=== PATIENT | female | born 1970 | race Caucasian/White ===

== ENCOUNTER 2018-07-24 06:41 | Day surgery (SDC) | payer BC, SELFPAY ==
[2018-07-24 06:54] VITALS: BP 118/63; PULSE 59; RESP 16; TEMP 37.2; O2SAT 99
[2018-07-24] MEDS: Lactated Ringers 1,000 ML 80 ML IV (07:27)
--- NOTE | 2018-07-24 08:57 | W.PM.DSUDISC ---
Discharge Plan Disposition Patient Disposition: HOME Condition: Good Discharge Details Reason For Visit: PERSONAL H/O COLON POLYPS Attending Provider: Alfonso Zimmer Primary Care Provider: Edinson Kaufman Home Meds and New Rx's Prescriptions: Continue lorazepam [Ativan] 0.5 MG tablet 0.5 mg PO PRN RF: 0 tretinoin 15 GM gel 15 gm Topical HS RF: 0 hydroxychloroquine 200 MG tablet 300 mg PO DAILY RF: 0 multivitamin [Daily Multiple] 1 EACH tablet 1 ea PO DAILY RF: 0 ibuprofen 800 MG tablet 800 mg PO DAILY RF: 0 estradiol-levonorgestrel [Climara Pro] 1 EACH patch weekly 1 ea Transdermal weekly Qty: 4 RF: 1 Discharge Instructions Instructions: Colonoscopy (DC) Activity:: Activity as Tolerated Diet:: As Tolerated Discharge Orders Discharge Orders: Discharge Order (Routine); Ordered 07/24/18 Ordered By: Alfonso Zimmer
--- NOTE | 2018-07-24 09:03 | W.PM.HP.N ---
Date of service: 07/24/18 Time of Service: 09:03 Assessment and Plan (1) Personal history of colonic polyps: Current visit: Yes Status: Acute I reviewed the colonoscopy procedure with Ms. Sanders, and discussed the risks of the procedure with her. All her questions were answered to her satisfaction. History of Present Illness Chief Complaint: Personal history of colon polyps Narrative: 48 y/o female referred for colorectal cancer screening by colonoscopy. She has been asymptomatic since her last colonoscopy. which was incomplete. She had multiple polyps found at that procedure. She has no family history of colorectal cancer Review of Systems Review of Systems All systems reviewed & are unremarkable except as noted in HPI and below PFSH Family History Other Diabetes Heart disease Hyperlipidemia Mental disorder Medical History Ankylosing spondylitis Carpal tunnel syndrome Dysplastic nevus of skin Hyperplastic colonic polyp Low back pain Nodules vocal cords Social History Smoking/Tobacco Use Status: Former Tobacco Use alcohol intake: current substance use type: does not use Surgical History Colonoscopy - IV Sedation Meds Home Medications Medication Instructions Recorded Confirmed Type lorazepam [Ativan] 0.5 mg PO PRN 04/24/16 07/24/18 History tretinoin 15 gm TOPICAL HS script 04/24/16 07/24/18 History hydroxychloroquine 300 mg PO DAILY tab-cap 06/17/17 07/24/18 History ibuprofen 800 mg PO DAILY 06/15/18 07/22/18 History multivitamin [Daily Multiple 1 ea PO DAILY 06/15/18 07/24/18 History Vitamin] Allergies Allergy/AdvReac Type Severity Reaction Status Date / Time No Known Drug Allergies Allergy Unverified 06/15/18 10:17 Exam Const General: cooperative, healthy appearing, comfortable and no acute distress Nutritional Appearance: average body habitus and well nourished Orientation: alert, awake and oriented x3 HENMT Head: normal to inspection, normocephalic and atraumatic Ears: hearing grossly normal bilaterally Face and sinus: normal facial exam Mouth: oral mucosae normal Eyes General: appearance normal, both eyes and all related structures Sclera: sclerae normal Pupils: PERRL EOM: EOM intact bilaterally Neck Neck: normal visual inspection, trachea midline and supple Resp Effort & Inspection: normal respiratory effort, no audible wheezes, no cough and not labored Cardio Rate: regular rate Rhythm: regular rhythm GI Inspection: normal to inspection Palpation: soft, no guarding and nontender Neuro General: moves all extremities, no focal motor deficits and CN's II-XI intact bilaterally Extrem General: no clubbing, cyanosis or edema Psych Appearance: grossly normal and well kempt Mental Status: mental status grossly normal Judgment: judgment good
--- NOTE | 2018-07-24 09:11 | COLE_ITS ---
Date of service: 07/24/18 Time of Service: 09:11 Colonoscopy Report Date of procedure: 07/24/18 Pre-op diagnosis general: Personal history of colon polyps Post-op diagnosis procedure note: other (Normal colon to the cecum) Procedure: Colonoscopy to the cecum Surgeon: Alfonso Zimmer Anesthesia proc note operative: MAC (Kayla Pugh, ECTOR ASA 2 Mallampati-II) Estimated blood loss (mL): 0 Pathology: none sent Complications: None Disposition: same day Indications: 48-year-old female presenting for colorectal cancer screening with personal history of colon polyps. On her last colonoscopy a tubular adenoma was identified. She has been asymptomatic since her last colonoscopy. She has no family history of colorectal cancer. He was recommended she undergo colonoscopy, and the procedure was reviewed with her. The risks of this procedure were discussed with her; all her questions were answered to her satisfaction. Consent was obtained to proceed with colonoscopy. Prep: Miralax/Dulcolax (Prep quality excellent) Findings: In examining the colon from cecum to anus, no abnormalities were noted. Procedure Description: The patient was seen in the day surgery waiting area. Her identification was confirmed, and procedure check. She was then brought to the procedure room. Monitoring for telemetry, blood pressure, oxygen saturation, and end tidal CO2 monitoring were applied. An appropriate time out was performed to confirm, identification, allergies, medication, procedure, was performed. Sedation was titrated for affect by the [employer]ING [employer]NAGER; Once adequate sedation was achieved, I performed a inspection of the external perineum, and a digitial rectal examination. No significant external abnormalities were noted. On digital rectal examination, there was no blood, no masses, good rectal tone. I advanced the colonoscope from the anus to the cecum under direct visualization. The cecum was identified by the ileal-cecal valve, and the appendiceal orifice. The scope was then withdrawn in circumferential manner from the cecum to the rectum. No abnormalites were noted in the colon. The scope was then withdrawn into the rectum, and retroflexed. No abnormalities were noted of the rectum or anorectal junction. The scope was then withdrawn, terminating the procedure. There were no complications during the procedure, and the patient tolerated the procedure well. She was returned to the day surgery recovery area in good condition. Plan: Will continue with routine screening for colorectal cancer according to current consensus guidelines, which is currently 10 years.
[2018-07-24 10:09] VITALS: BP 118/69; PULSE 60; RESP 16; TEMP 36.3; O2SAT 99
== END 2018-07-24 10:20 | disposition home or self-care (01) ==
PROVIDERS: PCP Internal Medicine; Visit Provider Surgery
PROC: 0DJD8ZZ Inspection of Lower Intestinal Tract, Via Natural or Artificial Opening Endoscopic (ICD-10-PCS; CPT 45378; principal; 2018-07-24 08:10)
DX: Z12.11 Encounter for screening for malignant neoplasm of colon (principal); Z86.010 Personal history of colon polyps
CPT/HCPCS: 45378; NC

== ENCOUNTER 2018-08-24 00:09 | Outpatient (CLI) | payer BC, SELFPAY ==
--- NOTE | 2018-08-24 09:07 | DI.MAMMO_ITS ---
SYMPTOMS/DIAGNOSIS: SCREENING, Z12.31 BILATERAL SCREENING MAMMOGRAM: Mammograms were interpreted according to the usual protocol including computer analysis with CAD system, tomosynthesis and C view imaging. Comparison is made with exams from 2013 through 2017. The breasts are composed of heterogeneously dense fibroglandular tissue, breast density category C. Scattered benign calcifications are again noted in the superior left breast. In the left breast, on the CC view, there are two areas of circumscribed nodularity not definitely seen previously. They are not definitely identified on the lateral view. Spot compression views and ultrasound are requested for further evaluation. In the central right breast, there is an additional area of circumscribed nodularity seen on the CC view. Spot compression views and ultrasound are requested for further evaluation. IMPRESSION: Bilateral category 0. Spot compression views and bilateral breast ultrasound are recommended for further evaluation of new areas of nodularity bilaterally. MQSA ASSESSMENT OF FINDINGS: Incomplete: Needs additional imaging evaluation. Category 0. Patient will receive a letter notifying them of these results. Bi-RADS category C. The breasts are heterogeneously dense, which may obscure small masses.
== END 2018-08-24 00:29 ==
PROVIDERS: PCP Internal Medicine; Visit Provider Obstetrics & Gynecology Gynecology
DX: Z12.31 Encounter for screening mammogram for malignant neoplasm of breast (principal); R92.8 Other abnormal and inconclusive findings on diagnostic imaging of breast
CPT/HCPCS: 77063; 77067

== ENCOUNTER 2018-08-31 00:44 | Outpatient (CLI) | payer BC, SELFPAY ==
--- NOTE | 2018-08-31 13:21 | DI.COMBO_ITS ---
SYMPTOM/DIAGNOSIS: F/U ABNL MAMMO, BILAT NODULARITY BILATERAL ADDITIONAL CALL BACK VIEWS AND BILATERAL BREAST ULTRASOUND: Additional images are interpreted according to the usual protocol including tomosynthesis and 2D imaging. ADDITIONAL VIEWS OF THE LEFT BREAST AND LEFT BREAST ULTRASOUND: Breast density, category C. Additional views of the left breast again vaguely show partially obscured nodules in the left breast. A left breast ultrasound was performed. The upper inner and upper outer quadrants were evaluated sonographically. There are multiple cysts present scattered throughout the left breast. The largest is seen in the upper inner quadrant and measures 1.6 cm. No suspicious cystic or solid masses are seen sonographically. IMPRESSION: No evidence for malignancy. Multiple left breast cysts. Yearly mammography is recommended. Category 2. ADDITIONAL VIEWS OF THE RIGHT BREAST AND RIGHT BREAST ULTRASOUND: Additional views of the right breast again shows a partially obscured nodule in the upper central right breast. Breast density, category C. A right breast ultrasound was performed. The upper inner and upper outer quadrants of the right breast were evaluated sonographically. There are multiple cysts in the right breast. The largest is in the upper outer quadrant and measures 1 by 0.9 cm. No suspicious solid or cystic masses are seen. IMPRESSION: No evidence for malignancy. Yearly mammography is recommended. Multiple breast cysts. Category 2. The findings were discussed with the patient on the date of the examination. SA ASSESSMENT OF FINDINGS: Negative with benign findings. Category 2. Patient will receive a letter notifying them of these results. Bi-RADS category C. The breasts are heterogeneously dense, which may obscure small masses.
== END 2018-08-31 01:04 ==
PROVIDERS: PCP Internal Medicine; Visit Provider Obstetrics & Gynecology Gynecology
DX: Z12.31 Encounter for screening mammogram for malignant neoplasm of breast (principal); R92.8 Other abnormal and inconclusive findings on diagnostic imaging of breast; N60.12 Diffuse cystic mastopathy of left breast; N60.11 Diffuse cystic mastopathy of right breast
CPT/HCPCS: 76642; 77063; 77067

== ENCOUNTER 2019-09-20 13:55 | Outpatient (CLI) | payer BC, SELFPAY ==
[2019-09-20 14:59] LABS: ALT 29 U/L (14-59); AST 19 U/L (15-37); Alkaline Phosphatase 74 U/L (46-116); Anion Gap 8.7 mmol/L (3-11); BUN 9 mg/dL (7-18); Bilirubin, Total 0.3 mg/dL (0.2-1.0); CO2 28.3 mmol/L (21.0-32.0); CREATININE 0.77 mg/dL (0.55-1.02); Chloride 106 mmol/L (98-107); Glucose 86 mg/dL (70-100); Lipase 164 U/L (73-393); Potassium 3.7 mmol/L (3.5-5.1); Sodium 143 mmol/L (136-145); Total Protein 6.9 g/dL (6.4-8.2)
== END 2019-09-20 14:15 ==
PROVIDERS: PCP Internal Medicine; Visit Provider Obstetrics & Gynecology Gynecology
DX: R10.12 Left upper quadrant pain (principal)
CPT/HCPCS: 36415; 80053; 83690

== ENCOUNTER 2019-09-23 13:50 | Outpatient (REF) | payer BC, SELFPAY ==
[2019-09-28 14:41] LABS: Helicobacter pylori Ag, Feces Negative (Negative)
== END 2019-09-23 14:10 ==
LOC: NCHCN 13:50
PROVIDERS: PCP Internal Medicine; Visit Provider Nurse Practitioner Family
DX: R10.13 Epigastric pain (principal)
CPT/HCPCS: 87338

== ENCOUNTER 2019-09-27 10:35 | Outpatient (REF) | payer BC, SELFPAY ==
[2019-09-27 19:56] LABS: Calculated LDL 115 mg/dL; Cholesterol 206 mg/dL (<200); HDL Cholesterol 68 mg/dL (40-60); Triglyceride 116 mg/dL (<150)
== END 2019-09-27 10:55 ==
LOC: NCHCN 10:35
PROVIDERS: PCP Internal Medicine; Visit Provider Nurse Practitioner Family
DX: Z13.220 Encounter for screening for lipoid disorders (principal)
CPT/HCPCS: 80061

== ENCOUNTER 2019-10-25 00:55 | Outpatient (CLI) | payer BC, SELFPAY ==
--- NOTE | 2019-10-25 11:58 | DI.MAMMO_ITS ---
EXAM: MG MAMMO SCREENING CLINICAL HISTORY: screening Z12.39. TECHNIQUE: Bilateral full field digital CC and MLO mammographic images were obtained with 3D tomosyn thesis and utilizing computer aided detection (CAD). COMPARISON: Available for comparison. FINDINGS: Masses/Architectural Distortion: None seen. Microcalcifications: No suspicious pleomorphic-type are seen. Skin Thickening/Nipple Retraction: None. IMPRESSION: 1. No significant interval change with no specific features of malignancy noted. 2. Unless there is more urgent need, screening mammography is recommended, as per [place] [employer] guidelines. ACR BI-RAD Category- 1 Negative Breast Density - Category C - Heterogeneously dense The mammogram demonstrates the patient's breast tissue is dense. Dense breast tissue is very common a nd is not abnormal but dense breast tissue can make it harder to find cancer on a mammogram. Also, de nse breast tissue may increase their breast cancer risk. This information about the result of the [facility] mogram report was provided to the patient to raise their awareness. Use this report when you speak wi th the patient about their risks for breast cancer, which includes their family history. At that time , you may recommend for more screening tests (Ultrasound or MRI) as they might be useful based on the ir risk. A negative radiographic report should not delay biopsy if a dominant or clinically suspicious mass is present. Up to ten percent of cancers are not identified on mammography. A negative report may reinforce clinical impression. Adenosis and dense breasts may obscure an underlying neoplasm. False positive reports average 6 to 10%. Patient will receive a letter notifying them of these results.
== END 2019-10-25 01:15 ==
PROVIDERS: PCP Internal Medicine; Visit Provider Obstetrics & Gynecology Gynecology
DX: Z12.31 Encounter for screening mammogram for malignant neoplasm of breast (principal)
CPT/HCPCS: 77063; 77067

== ENCOUNTER 2020-12-25 16:05 | Outpatient (REF) | payer OTHER, SELFPAY ==
[2020-12-26 09:36] LABS: Hepatitis C Ab w Rflx HCV PCR Negative (Negative)
[2020-12-26 10:02] LABS: Hepatitis B Surface Ag Negative (Negative)
[2020-12-26 11:08] LABS: HIV-1/2 Ag & Ab Screen Negative (Negative)
== END 2020-12-25 16:06 | disposition home or self-care (01) ==
LOC: NCHCN 16:05
PROVIDERS: PCP Internal Medicine; Visit Provider Physician Assistant
DX: Z11.59 Encounter for screening for other viral diseases (principal); Z11.4 Encounter for screening for human immunodeficiency virus [HIV]; W26.8XXD Contact with other sharp object(s), not elsewhere classified, subsequent encounter
CPT/HCPCS: 86803; 87340; 87389

== ENCOUNTER 2021-02-02 11:14 | Outpatient (REF) | payer OTHER, SELFPAY ==
[2021-02-05 10:30] LABS: Hepatitis C Ab w Rflx HCV PCR Negative (Negative)
[2021-02-05 10:35] LABS: HIV-1/2 Ag & Ab Screen Negative (Negative)
[2021-02-05 11:03] LABS: Hepatitis B Surface Ag Negative (Negative)
== END 2021-02-02 11:15 | disposition home or self-care (01) ==
LOC: NCHCN 11:14
PROVIDERS: PCP Internal Medicine; Visit Provider Physician Assistant
DX: W26.8XXD Contact with other sharp object(s), not elsewhere classified, subsequent encounter (principal); Z11.4 Encounter for screening for human immunodeficiency virus [HIV]; Z11.59 Encounter for screening for other viral diseases; S61.031D Puncture wound without foreign body of right thumb without damage to nail, subsequent encounter
CPT/HCPCS: 86803; 87340; 87389

== ENCOUNTER 2021-02-22 11:21 | Outpatient (REF) | payer BC, SELFPAY ==
[2021-02-22 15:31] LABS: Calculated LDL 87 mg/dL (<100); Cholesterol 173 mg/dL (<200); Glucose 107 mg/dL (74-106); HDL Cholesterol 67 mg/dL (40-60); Triglyceride 98 mg/dL (<150)
== END 2021-02-22 11:22 | disposition home or self-care (01) ==
LOC: NCHCN 11:21
PROVIDERS: PCP Internal Medicine; Visit Provider Nurse Practitioner Family
DX: Z00.00 Encounter for general adult medical examination without abnormal findings (principal); Z13.1 Encounter for screening for diabetes mellitus; Z13.220 Encounter for screening for lipoid disorders
CPT/HCPCS: 80061; 82947

== ENCOUNTER 2021-05-11 18:20 | Outpatient (REF) | payer OTHER, SELFPAY ==
[2021-05-14 10:04] LABS: Hepatitis C Ab w Rflx HCV PCR Negative (Negative)
[2021-05-14 12:09] LABS: Hepatitis B Surface Ag Negative (Negative)
[2021-05-14 13:57] LABS: HIV-1/2 Ag & Ab Screen Negative (Negative)
== END 2021-05-11 18:21 | disposition home or self-care (01) ==
LOC: NCHCN 18:20
PROVIDERS: PCP Internal Medicine; Visit Provider Internal Medicine
DX: T14.90XD Injury, unspecified, subsequent encounter (principal); W26.8XXD Contact with other sharp object(s), not elsewhere classified, subsequent encounter
CPT/HCPCS: 86803; 87340; 87389

== ENCOUNTER 2022-07-02 12:36 | Outpatient (REF) | payer BC, SELFPAY ==
--- NOTE | 2022-07-02 11:20 | PAPFT_PTH ---
PATIENT: Diana Sanders LOC: [facility] U#:[id number] AGE/SX: 52/F ROOM: RE07/02/[address]: Zoey Alva NP : 1970 BED: DIS: 07/02/2022 SPEC #: [id number] RECD: 07/02/22 13:04 STATUS: CASSIEJohn AHN #: [id number] DEVI: 07/02/22 11:[address]: Zoey Alva NP DEPT: [facility] Cytology RECD BY: María Elena Ivey ENTERED: 07/02/22 13:05 SP TYPE: PAPFT OTHR DR: Edinson Kaufman Tissues: 1 - CX/ENDOCX FOR PAP SMEARS Procedures: PAP THIN PREP/UVM Screening HPV DNA PROBE Comments: [id number]
== END 2022-07-02 12:37 | disposition home or self-care (01) ==
LOC: LBN 12:36
PROVIDERS: PCP Internal Medicine; Visit Provider Nurse Practitioner Women's Health
DX: Z12.4 Encounter for screening for malignant neoplasm of cervix (principal); Z11.51 Encounter for screening for human papillomavirus (HPV)
CPT/HCPCS: 88142; 87624

== ENCOUNTER → 2022-07-30 01:58 | Outpatient (CLI) | payer BC, SELFPAY ==
--- NOTE | 2022-07-30 11:32 | DI.MAMMO_ITS ---
Exam(s) MAMMO SCREENING EXAM: MAMMO SCREENING CLINICAL HISTORY: screening TECHNIQUE: Bilateral full field digital CC and MLO mammographic images were obtained with 3D tomosyn thesis and utilizing computer aided detection (CAD). COMPARISON: Available for comparison. FINDINGS: Masses/Architectural Distortion: None seen. Microcalcifications: No suspicious pleomorphic-type are seen. Skin Thickening/Nipple Retraction: None. IMPRESSION: 1. No significant interval change with no specific features of malignancy noted. 2. Unless there is more urgent need, screening mammography is recommended, as per [place] [employer] guidelines. BI-RADS Category 1 - Negative Breast Density - Category C - Heterogeneously dense Breast density category C or D implies that the patient has dense breast tissue. Dense breast tissue is very common and is not abnormal but dense breast tissue can make it harder to find cancer on a ma mmogram. Also, dense breast tissue may increase their breast cancer risk. This information about the result of the mammogram report was provided to the patient to raise their awareness. Use this report when you speak with the patient about their risks for breast cancer, which includes their family hist ory. At that time, you may recommend for more screening tests (Ultrasound or MRI) as they might be us eful based on their risk. A negative radiographic report should not delay biopsy if a dominant or clinically suspicious mass is present. Up to ten percent of cancers are not identified on mammography. A negative report may reinforce clinical impression. Adenosis and dense breasts may obscure an underlying neoplasm. False positive reports average 6 to 10%. Patient will receive a letter notifying them of these results.
== END ==
PROVIDERS: PCP Internal Medicine; Visit Provider Nurse Practitioner Women's Health
DX: Z12.31 Encounter for screening mammogram for malignant neoplasm of breast (principal); R92.8 Other abnormal and inconclusive findings on diagnostic imaging of breast
CPT/HCPCS: 77063; 77067

== ENCOUNTER → 2024-02-19 04:18 | Outpatient (CLI) | payer BC, SELFPAY ==
--- NOTE | 2024-02-19 12:12 | DI.MAMMO_ITS ---
Exam(s) MAMMO SCREENING EXAM: MAMMO SCREENING CLINICAL HISTORY: screening TECHNIQUE: Bilateral full field digital CC and MLO mammographic images were obtained with 3D tomosyn thesis and utilizing computer aided detection (CAD). COMPARISON: Available for comparison. FINDINGS: Masses/Architectural Distortion: There is a new 5 mm nodule in the posterior central left breast seen on the craniocaudad view. There is a stable nodule seen in the medial right breast. No areas of ar chitectural distortion are seen. Microcalcifications: No suspicious pleomorphic-type are seen. Skin Thickening/Nipple Retraction: None. IMPRESSION: 1. New 5 mm nodule in the posterior central left breast seen on the craniocaudad view. 2. Spot compression views requested for further evaluation. Ultrasound may be indicated at that time . BI-RADS Category 0 - Assessment Incomplete: Need additional imaging evaluation Breast Density - Category C - Heterogeneously dense Breast density category C or D implies that the patient has dense breast tissue. Dense breast tissue is very common and is not abnormal but dense breast tissue can make it harder to find cancer on a ma mmogram. Also, dense breast tissue may increase their breast cancer risk. This information about the result of the mammogram report was provided to the patient to raise their awareness. Use this report when you speak with the patient about their risks for breast cancer, which includes their family hist ory. At that time, you may recommend for more screening tests (Ultrasound or MRI) as they might be us eful based on their risk. A negative radiographic report should not delay biopsy if a dominant or clinically suspicious mass is present. Up to ten percent of cancers are not identified on mammography. A negative report may reinforce clinical impression. Adenosis and dense breasts may obscure an underlying neoplasm. False positive reports average 6 to 10%. Patient will receive a letter notifying them of these results.
== END ==
PROVIDERS: PCP Internal Medicine; Visit Provider Nurse Practitioner Women's Health
DX: Z12.31 Encounter for screening mammogram for malignant neoplasm of breast (principal); N63.20 Unspecified lump in the left breast, unspecified quadrant; R92.333 Mammographic heterogeneous density, bilateral breasts
CPT/HCPCS: 77063; 77067

== ENCOUNTER → 2024-02-24 04:28 | Outpatient (CLI) | payer BC, SELFPAY ==
--- NOTE | 2024-02-24 | DI.US_ITS ---
Exam(s) MG MAMMO SCREEN CALL BACK UNI US BREAST LT COMPLETE EXAM: MG MAMMO SCREEN CALL BACK UNI-LEFT AND COMPLETE LEFT BREAST ULTRASOUND CLINICAL HISTORY: F/U MAMMO, NEW 5 MM NODULE CENTRAL LT BREAST,R92.8. TECHNIQUE: Unilateral spot mammographic images obtained with 3D tomosynthesisand utilizing computer aided detection (CAD). . Complete LEFT breast Ultrasound was also performed, including all 4 quadrants, the retroareolar regio n, and the ipsilateral axilla. COMPARISON: Prior mammograms were reviewed. This additional imaging was performed due to findings described on the recent screening mammogram of 02/19/2024. FINDINGS: DIAGNOSTIC MAMMOGRAM: Additional mammographic views performed todayis equivocal with respect of the mammographic nodule of concern but actually brings out another nodule which is slightly more medial and larger. We proceeded with ultrasound... COMPLETE LEFT BREAST ULTRASOUND: Ultrasound performed today reveals cysts as well as a few other findings... Largest cyst is at the 11 o'clock position and measures 1.7 by 0.9 cm and contains a benign-appearing septation. There are no worrisome solid components within this cyst. Otherwise, there are microcysts at the 12 o'clock position measuring 4 and 3 mm. Another benign micr ocysts measuring 6 mm at the 1 o'clock position. Adjacent to this at the 1 o'clock position is a 5 m m wider than taller nodule with neutral through transmission which is either hemorrhagic cyst or fibr oadenoma; less likely more ominous pathology. The 2 o'clock position there is a 6 mm round benign microcyst. At the 3 o'clock position there is a 6 x 3 millimeter microcyst. At the 4 o'clock position there is a 4 x 4 millimeter hemorrhagic microcyst. At the 5 o'clock position there is a 7 x 4 mm probable hemorrhagic microcyst, wider than taller. At the 7 o'clock position there is a 7 x 5 mm microcyst. Scanning of the ipsilateral axilla reveals no significant adenopathy. IMPRESSION: 1. Multiple findings in left breast which are significantly better well visualized on ultrasound kelly n on the 3D mammogram. The largest ultrasound finding is a 17 x 9 mm benign cysts at the 11 o'clock position. Is interesting to note that this is not evident on the 3D mammogram. 2. Addition to the simple cysts, there are a few findings which are either hemorrhagic cysts or fibr oadenomas (less likely more ominous pathology). These are at the 1 o'clock position, 4 o'clock posit ion, and 5 o'clock position. Appropriate follow-up as discussed by myself with the patient today is repeat breast ultrasound in 6 months. At that time given the density of her fibroglandular tissue on mammography plus the above fi ndings I recommend that she undergo bilateral breast ultrasound exam at that time. The patient was informed of these findings and recommendations by myself prior to leaving the departm ent today. BI-RADS Category 3 - 6 month - Probably Benign Finding: Recommend follow-up mammography in 6 months Breast Density - Category C - Heterogeneously dense Breast density Category C or D implies that the patient has dense breast tissue. Dense breast tissue can make it harder to find cancer on a mammogram. Dense breast tissue is also associated with an incr eased risk of breast cancer. This information about the result of the mammogram report was provided to the patient to raise their awareness. Use this report when you speak with the patient about their risks for breast cancer, which includes their family history. At that time, you may recommend additional screening tests (Ultrasoun d or MRI) as these tests may add significant information. A negative radiographic report should not delay biopsy if a dominant or clinically suspicious mass is present. Up to ten percent of cancers are not identified on mammography. A negative report may reinforce clinical impression. Adenosis and dense breasts may obscure an underlying neoplasm. False positive reports average 6 to 10%. Patient will receive a letter notifying them of these results.
== END ==
PROVIDERS: PCP Internal Medicine; Visit Provider Nurse Practitioner Women's Health
DX: Z12.31 Encounter for screening mammogram for malignant neoplasm of breast (principal); R92.8 Other abnormal and inconclusive findings on diagnostic imaging of breast
CPT/HCPCS: 76642; 77063; 77067

== ENCOUNTER 2024-02-24 15:35 | Outpatient (REF) | payer BC, SELFPAY ==
[2024-02-24 19:09] LABS: HCT 40.6 % (36.0-46.0); HGB 13.7 g/dL (11.2-15.7); MCH 29.8 pg (27.0-33.0); MCHC 33.7 % (32.0-36.0); MCV 88 fL (80-95); MPV 10.9 fL (8.0-11.0); Platelet Count 292 10^3/uL (130-400); RDW 13.3 % (11.7-14.6); WBC 8.54 10^3/uL (4.4-10.8)
[2024-02-24 19:31] LABS: ALT 42 U/L (14-59); AST 31 U/L (15-37); Albumin 4.2 g/dL (3.4-5.0); Alkaline Phosphatase 109 U/L (46-116); Anion Gap 11.7 mmol/L (3-11); BUN 11 mg/dL (7-18); Bilirubin, Total 0.5 mg/dL (0.2-1.0); CO2 27.3 mmol/L (21.0-32.0); CREATININE 0.8 mg/dL (0.55-1.02); Calcium 9.2 mg/dL (8.5-10.1); Chloride 105 mmol/L (98-107); Estimated GFR 86.42 (mL/min/1.73m2); Glucose 90 mg/dL (74-106); Potassium 3.8 mmol/L (3.5-5.1); Sodium 144 mmol/L (136-145); TSH (W/Ref FT4) 1.14 uIU/mL (0.36-3.74); Total Protein 7.5 g/dL (6.4-8.2)
[2024-02-25 09:22] LABS: Ferritin 70 ng/mL (8-252)
[2024-02-25 18:56] LABS: Folate 12.7 ng/mL (See Note)
[2024-02-26 13:18] LABS: Calculated LDL 132 mg/dL (<160); Cholesterol 224 mg/dL (<200); HDL Cholesterol 67 mg/dL (>or=50); Triglyceride 126 mg/dL (<or=150)
[2024-02-26 18:36] LABS: Iron 93 ug/dL (50-170); Total Iron Binding Capacity 435 ug/dL (250-450); Transferrin Sat 21 % (15-50)
[2024-02-26 18:51] LABS: Vitamin D 25 Total 29.8 ng/mL (30-100)
[2024-02-26 18:54] LABS: Vitamin B12 395 pg/mL (193-986)
== END 2024-02-24 15:36 | disposition home or self-care (01) ==
LOC: NCHCN 15:35
PROVIDERS: PCP Internal Medicine; Visit Provider Nurse Practitioner Family
DX: D64.9 Anemia, unspecified (principal)
CPT/HCPCS: 80053; 80061; 82306; 85027; 82607; 82728; 82746; 83540; 83550; 84443

== ENCOUNTER 2025-02-23 02:42 | Outpatient (CLI) | payer BC, SELFPAY ==
--- NOTE | 2025-02-23 08:00 | DI.US_ITS ---
Exam(s) US BREAST LT COMPLETE US BREAST RT COMPLETE MG MAMMO SCREENING EXAM: MG MAMMO SCREENING and bilateral complete breast ultrasound CLINICAL HISTORY: screening,z12.39. TECHNIQUE: Craniocaudal and mediolateral oblique Full Field Digital Mammography views with Computer Aided Diagnosis followed by Tomosynthesis and bilateral complete breast ultrasound. All 4 quadrants of both breast were evaluated sonographically. The axilla and retroareolar regions were also interro gated sonographically. COMPARISON: Comparison is made with prior examinations. FINDINGS: Mammography/Tomosynthesis: Masses/Architectural Distortion: No suspicious masses or areas of architectural distortion are seen. There again seen bilateral breast nodules which are well-circumscribed. Microcalcifictions: No suspicious pleomorphic-type are seen. Skin Thickening/Nipple Retraction: None. Complete bilateral breast US: Echotexture: Normal appearance of the glandular tissue. Shadowing: No suspicious foci. Cyst: In the left breast, there are multiple cysts and cystic clusters present which appears stable. No suspicious cystic lesions are present. In the right breast, there are multiple cystic lesions in cystic clusters present. At the 11 o'clock position of the right breast 5 cm from the nipple, there is a hypoechoic lesion measuring 4 mm which appears to be a cluster of cysts. This area should be r e-evaluated in 6 months with a left breast ultrasound. Solid lesions: None seen. Ductal dilation: None. IMPRESSION: 1. No definite evidence for malignancy is seen at this time. 2. The left breast should continue to yearly screening mammography. 3. A six-month follow-up right mammogram and right breast ultrasound are requested for re-evaluation of the area at the left o'clock position of the right breast. 4. The findings were discussed with the patient on the date of the examination. BI-RADS Category 3 - 6 month - Probably Benign Finding: Recommend follow-up imaging in 6 months Breast Density - Category C - Heterogeneously dense Breast density Category C or D implies that the patient has dense breast tissue. Dense breast tissue can make it harder to find cancer on a mammogram. Dense breast tissue is also associated with an incr eased risk of breast cancer. This information about the result of the mammogram report was provided to the patient to raise their awareness. Use this report when you speak with the patient about their risks for breast cancer, which includes their family history. At that time, you may recommend additional screening tests (Ultrasoun d or MRI) as these tests may add significant information. A negative radiographic report should not delay biopsy if a dominant or clinically suspicious mass is present. Up to ten percent of cancers are not identified on mammography. A negative report may reinforce clinical impression. Adenosis and dense breasts may obscure an underlying neoplasm. False positive reports average 6 to 10%. Patient will receive a letter notifying them of these results.
== END 2025-02-23 03:02 ==
LOC: DI 02:42
PROVIDERS: PCP Internal Medicine; Visit Provider Nurse Practitioner Women's Health
DX: R92.8 Other abnormal and inconclusive findings on diagnostic imaging of breast (principal); Z12.31 Encounter for screening mammogram for malignant neoplasm of breast; R92.333 Mammographic heterogeneous density, bilateral breasts; D24.2 Benign neoplasm of left breast
CPT/HCPCS: 76642; 77063; 77067

== ENCOUNTER 2025-03-21 15:19 | Outpatient (REF) | payer BC, SELFPAY ==
[2025-03-21 20:11] LABS: HCT 41.9 % (36.0-46.0); HGB 14.4 g/dL (11.2-15.7); MCH 30.1 pg (27.0-33.0); MCHC 34.4 % (32.0-36.0); MCV 88 fL (80-95); MPV 11.3 fL (8.0-11.0); Platelet Count 270 10^3/uL (130-400); RBC 4.79 10^6/uL (3.93-5.22); RDW 13.2 % (11.7-14.6); RDW-SD 43.1 fL; WBC 9.03 10^3/uL (4.4-10.8)
[2025-03-21 20:49] LABS: ALT 35 U/L (14-59); AST 23 U/L (15-37); Albumin 4.5 g/dL (3.4-5.0); Alkaline Phosphatase 64 U/L (46-116); Anion Gap 8.3 mmol/L (3-11); BUN 11 mg/dL (7-18); Bilirubin, Total 0.6 mg/dL (0.2-1.0); CO2 26.7 mmol/L (21.0-32.0); CREATININE 0.7 mg/dL (0.55-1.02); Calcium 9.6 mg/dL (8.5-10.1); Chloride 106 mmol/L (98-107); Estimated GFR 100.81 (mL/min/1.73m2); Glucose 97 mg/dL (74-106); Potassium 3.4 mmol/L (3.5-5.1); Sodium 141 mmol/L (136-145); Total Protein 7.4 g/dL (6.4-8.2); Vitamin D 25 Total 36 ng/mL (30-100)
== END 2025-03-21 15:20 | disposition home or self-care (01) ==
LOC: NCHCN 15:19
PROVIDERS: PCP Internal Medicine; Visit Provider Nurse Practitioner Family
DX: D64.9 Anemia, unspecified (principal); Z86.39 Personal history of other endocrine, nutritional and metabolic disease; R53.83 Other fatigue
CPT/HCPCS: 80053; 82306; 85027

== ENCOUNTER 2025-08-25 03:35 | Outpatient (CLI) | payer BC, SELFPAY ==
--- NOTE | 2025-08-25 06:45 | DI.MAMMO_ITS ---
Exam(s) [facility] MAMMO DIAGNOSTIC UNI US BREAST RT LIMITED EXAM: MG MAMMO DIAGNOSTIC UNI and U/S breast RT limited CLINICAL HISTORY: 6 month f/u r breast,abnl mammo, r92.8,rt cystic lesions. TECHNIQUE: Craniocaudal and mediolateral oblique Full Field Digital Mammography views of the right breast with Computer Aided Diagnosis followed by Tomosynthesis and limited right breast ultrasound. COMPARISON: Comparison is made with prior examinations. FINDINGS: Mammography/Tomosynthesis: Masses/Architectural Distortion: There are stable areas of nodularity in the right breast. No suspicious nodules or areas of architectural distortion are seen. Microcalcifictions: No suspicious pleomorphic-type are seen. Skin Thickening/Nipple Retraction: None. Limited right breast US: Echotexture: Normal appearance of the glandular tissue. Shadowing: No suspicious foci. Cyst: None. Solid lesions: There is again seen a lobulated hypoechoic nodule at the 11 o'clock position of the right breast 5 cm from the nipple. It is unchanged in size. There is no internal blood flow, posterior acoustic enhancement or shadowing. Ductal dilation: None. IMPRESSION: 1. Stable well-circumscribed hypoechoic nodule at the 11 o'clock position of the right breast. No definite evidence of malignancy is seen. 2. A six-month follow-up right mammogram and ultrasound are requested for re- evaluation. 3. The findings were discussed with the patient on the date of the examination. BI-RADS Category 3 - 6 month - Probably Benign Finding: Recommend follow-up imaging in 6 months Breast Density - Category C - The breast are heterogeneously dense, which may obscure small masses. Breast density Category C or D implies that the patient has dense breast tissue. Dense breast tissue can make it harder to find cancer on a mammogram. Dense breast tissue is also associated with an increased risk of breast cancer. This information about the result of the mammogram report was provided to the patient to raise their awareness. Use this report when you speak with the patient about their risks for breast cancer, which includes their family history. At that time, you may recommend additional screening tests (Ultrasound or MRI) as these tests may add significant information. A negative radiographic report should not delay biopsy if a dominant or clinically suspicious mass is present. Up to ten percent of cancers are not identified on mammography. A negative report may reinforce clinical impression. Adenosis and dense breasts may obscure an underlying neoplasm. False positive reports average 6 to 10%. Patient will receive a letter notifying them of these results.
== END 2025-08-25 03:55 ==
LOC: DI 03:35
PROVIDERS: PCP Internal Medicine; Visit Provider Nurse Practitioner Women's Health
DX: N63.11 Unspecified lump in the right breast, upper outer quadrant (principal); Z12.31 Encounter for screening mammogram for malignant neoplasm of breast
CPT/HCPCS: 76642; 77061; 77065; G0279